=== PATIENT | female | born 1970 | race Caucasian/White ===

== ENCOUNTER 2017-05-30 14:11 | Emergency (ER) ==
[2017-05-30] MEDS ORDERED: ROCEPHIN IM STA (14:14)
[2017-05-30] MEDS ORDERED: LIDOCAINE HCL 1% SDV SUBCUT STA (14:14)
[2017-05-30 14:17] VITALS: BP 123/86; TEMP 97.9; BMI 38.2
--- NOTE | 2017-05-30 14:47 | DI ---
EXAM: Radiographs, right hand HISTORY: Right hand pain. COMPARISON: None available. TECHNIQUE: Three views. FINDINGS: Bone mineralization is normal. There is no fracture or dislocation. The joint spaces are maintained. No focal soft tissue abnormality is seen. IMPRESSION: No fracture or dislocation.
--- NOTE | 2017-05-30 14:47 | DI ---
EXAM: Three views of the left hand. History: Left hand pain. Comparison: Left hand radiograph 05/28/2016 Findings: No acute fracture or dislocation. No abnormal calcifications or radiopaque foreign bodies. Joint spaces are relatively preserved. Impression: No acute osseous abnormality
--- NOTE | 2017-05-30 14:48 | DI ---
EXAM: Three views of the left elbow. History: Left elbow pain. Comparison: Left elbow radiograph 08/11/2013 Findings: No acute fracture or dislocation. Well corticated ossific density again seen along the ul vivienne side of the elbow joint. No definite joint effusion. Impression: 1. No acute osseous abnormality. 2. No change in the well corticated ossific density along the ulnar side of the elbow joint could be intra-articular
--- NOTE | 2017-05-30 15:34 | ED.PDOC ---
General ED Provider: Dr. CAMERON ARMANDO Chief Complaint: Hand Pain/Injury Stated Complaint: hand pain Time Seen by Physician: 14:13 (seen with nursing staff) Mode of Arrival: Walk-In Information Source: Patient Exam Limitations: No limitations Primary Care Provider: CAMERON ROTHMAN Nursing and Triage Documentation Reviewed and Agree: Yes (seen with nursing staff at bedside ) Musculoskeletal Complaint Exam - Hand/Wrist Complaint/Exam Location of Pain: Reports: Right, Left, Hand. 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 [employer] Symptoms Are: Still present Initial Severity: Mild Current Severity: Mild Location: Reports: Discrete Character: Reports: Aching Alleviating: Reports: Rest Aggravating: Reports: None Associated Signs and Symptoms: Denies: Swelling, Redness, Bruising, Fever, Weakness, Numbness, Tingling Dominant Hand: Right Related Surgical History: Reports: None Differential Diagnoses: Carpal Tunnel Syndrome, Infection, Foreign Body, Sprain , Strain, Tendonitis, Tenosynovitis Review of Systems - Review Of Systems Constitutional: Reports: No symptoms Eyes: Reports: No symptoms Ears, Nose, Mouth, Throat: Reports: No symptoms Respiratory: Reports: No symptoms Cardiac: Reports: No symptoms GI: Reports: No symptoms : Reports: No symptoms Musculoskeletal: Reports: Joint pain (hands) Skin: Reports: No symptoms Neurological: Reports: No symptoms Endocrine: Reports: No symptoms Hematologic/Lymphatic: Reports: No symptoms All Other Systems: Reviewed and Negative Past Medical History - Past Medical History Previously Healthy: Yes Endocrine: Reports: None Cardiovascular: Reports: None Respiratory: Reports: None Hematological: Reports: None Gastrointestinal: Reports: None Genitourinary: Reports: None Neuro/Psych: Reports: None Musculoskeletal: Reports: None Cancer: Reports: None Last Menstrual Period: none - Surgical History General Surgical History: Reports: None - Family History Family History: Reports: None - Social History Smoking Status: Current every day smoker Hx Substance Use: No Alcohol Screening: None Physical Exam - Physical Exam Appearance: Well-appearing, No pain distress, Well-nourished Eyes: LAKSHMI, EOMI, Conjunctiva clear ENT: Ears normal, Nose normal, Oropharynx normal Respiratory: Airway patent, Breath sounds clear, Breath sounds equal, Respirations nonlabored Cardiovascular: RRR, Pulses normal, No rub, No murmur GI/: Soft, Nontender, No masses, Bowel sounds normal, No Organomegaly Musculoskeletal: Normal strength, ROM intact, No edema, No calf tenderness Skin: Warm, Dry, Normal color Neurological: Sensation intact, Motor intact, Reflexes intact, Cranial nerves intact, Alert, Oriented Psychiatric: Affect appropriate, Mood appropriate Critical Care Note - Critical Care Note Total Time (mins): 0 Course - Course Orders, Labs, Meds: Orders Category Date Time Status Ceftriaxone Sodium [Rocephin] MEDS 05/30/17 14:14 Discontinued 1 gm IM ONCE STA Lidocaine HCl/Pf [Lidocaine HCl 1% Sdv] MEDS 05/30/17 14:14 Discontinued 5 ml SUBCUT ONCE STA ELBOW, LEFT MIN 3 VIEWS Stat RADS 05/30/17 14:21 Completed HAND, LEFT 3 VIEWS Stat RADS 05/30/17 14:14 Completed HAND, RIGHT 3 VIEWS Stat RADS 05/30/17 14:14 Completed Medications Discontinued Medications Generic Name Dose Route Start Last Admin Trade Name Freq PRN Reason Stop Dose Admin Ceftriaxone Sodium 1 gm 05/30/17 14:14 05/30/17 14:42 Rocephin IM 05/30/17 14:15 1 gm ONCE STA Administration Lidocaine HCl 5 ml 05/30/17 14:14 05/30/17 14:43 Lidocaine Hcl 1% Sdv SUBCUT 05/30/17 14:15 5 ml ONCE STA Administration Vital Signs: Temp Pulse Resp BP Pulse Ox 05/30/17 14:11 97.9 F 82 20 123/86 96 Departure - Departure Time of Disposition: 15:35 Disposition: HOME SELF-CARE Discharge Problem: Hand pain Instructions: Arthralgia (ED), Complex Regional Pain Syndrome (GEN) Condition: Good Pt referred to PMD for follow-up: Yes Additional Instructions: Please call your Family Physician as soon as possible to schedule a follow-up appointment.IF YOUR HAND IS SWOLLEN , RED , RASH NOTED YOU MUST RETURN SSON POSSIBLE Prescriptions: Hydrocodone/Acetaminophen [[place] 10-325 Tablet] 1 each PO Q8HR #14 tablet Allergies/Adverse Reactions: Allergies ampicillin Adverse Reaction (Verified 05/30/17 14:18) aspirin Adverse Reaction (Verified 05/30/17 14:18) erythromycin base [Erythromycin Base] Adverse Reaction (Verified 05/30/17 14:18) morphine Adverse Reaction (Verified 05/30/17 14:18) Home Medications: Ambulatory Orders Lurasidone HCl [Latuda] 40 mg PO DAILY 09/07/14 Hydrocodone/Acetaminophen [[place] 10-325 Tablet] 1 each PO Q8HR #14 tablet Tizanidine HCl [Zanaflex] 4 mg PO DAILY 05/30/17
== END 2017-05-30 15:46 | disposition home or self-care (01) ==
LOC: ED 14:11
DX: M79.642 Pain in left hand (principal); M79.641 Pain in right hand; F17.210 Nicotine dependence, cigarettes, uncomplicated
CPT/HCPCS: 96372; 99282

== ENCOUNTER 2018-11-21 15:16 | Emergency (ER) ==
[2018-11-21 15:21] VITALS: BP 116/64; TEMP 97.9; BMI 37.9
--- NOTE | 2018-11-21 16:14 | CT ---
EXAM: CT lumbar spine without contrast HISTORY: Right flank pain COMPARISON: None TECHNIQUE: CT lumbar spine performed without intravenous contrast. Coronal and sagittal reformatted images obtained. FINDINGS: Vertebral bodies normal height. No fracture. Multilevel marginal osteophyte formation. Mild intervertebral disc space narrowing L2-L3. Multilevel facet arthrosis. 1 mm anterolisthesis of L4 on L5. Sacroiliac joints intact with mild degenerative change. T12-L1: No central canal or neural foraminal narrowing. L1-L2: No central canal or neural foraminal narrowing. L2-L3: Posterior disc osteophyte complex and facet arthrosis causing mild central canal narrowing. L3-L4: No central canal or neural foraminal narrowing. L4-L5: Posterior disc osteophyte complex and facet arthrosis causing mild central canal and mild kesha ateral neural foraminal narrowing. L5-S1: No central canal or neural foraminal narrowing. IMPRESSION: 1. No fracture or subluxation. 2. Chronic discogenic degenerative disease and facet arthrosis. Please see segmental analysis.
--- NOTE | 2018-11-21 16:19 | CT ---
EXAM: CT abdomen pelvis without contrast HISTORY: Right flank pain COMPARISON: None TECHNIQUE: CT abdomen pelvis performed without intravenous contrast. Coronal and sagittal reformatt ed images obtained FINDINGS: Granulomatous calcification right lung base. Granulomatous calcification lung bases. No free air. No acute abnormalities of the bones. Degenerative change in the spine. Heart normal in s ize. Liver is enlarged. Liver diffusely decreased in density. Gallbladder appears normal. Pancrea s appears normal. Spleen appears normal. Adrenals appear normal. Aorta normal in caliber. Patient status post hysterectomy. No lymphadenopathy or ascites. Small fat-containing periumbilical hernia . Stomach unremarkable. No dilated loops small bowel. Appendix appears normal. Colonic diverticul osis. No hydronephrosis or nephrolithiasis. No calculi visualized in the normal course of the urete rs. Bladder only mildly distended and poorly evaluated, grossly unremarkable IMPRESSION: 1. No hydronephrosis or nephrolithiasis. 2. Hepatomegaly. Hepatic steatosis. 3. Colonic diverticulosis.
--- NOTE | 2018-11-21 16:32 | ED.PDOC ---
General ED Provider: Dr. CAMERON ARMANDO Chief Complaint: Back Pain Stated Complaint: back pain lumbar Time Seen by Physician: 15:30 (seen with the nursing staff) Mode of Arrival: Walk-In Information Source: Patient Exam Limitations: No limitations Primary Care Provider: CAMERON ROTHMAN Nursing and Triage Documentation Reviewed and Agree: Yes Does patient meet sepsis criteria?: No System Inflammatory Response Syndrome: Not Applicable Sepsis Protocol: For patient's 13 years and over: Temp is 96.8 and below OR 101 and greater Pulse >90 BPM Resp >20/minute Acutely Altered Mental Status Are patient's symptoms suggestive of a new infection, such as: -Pneumonia -Skin, Soft Tissue -Endocarditis -UTI -Bone, Joint Infection -Implantable Device -Acute Abdominal Infection -Wound Infection -Meningitis -Blood Stream Catheter Infection -Unknown Musculoskeletal Complaint Exam - Back Pain Complaint/Exam Mechanism of Injury: Reports: No known trauma Onset/Duration: 2 days Symptoms Are: Still present Timing: Constant Episodes Lasting: Days Initial Severity: Mild Current Severity: Mild Location: Reports: Discrete Character: Reports: Aching Aggravating: Reports: Movements, Lifting, Bending, Walking Alleviating: Reports: Rest, Position Associated Signs and Symptoms: Denies: Swelling, Redness, Bruising, Fever, Weakness, Numbness, Tingling, Abdominal pain, Flank pain, Bladder incontinence, Bowel incontinence, Weight loss, Pain with weight bearing Related History: Reports: Similar episode TAD Risk Factors: Reports: None AAA Risk Factors: Reports: None Cauda Equina Risk Factors: Reports: None Epidural Abcess Risk Factors: Reports: None Related Surgical History: Reports: None Focal Tenderness: No Paraspinal Muscle Tenderness: No Paraspinal Muscle Spasm: No Scoliosis: No SLR Test: Right Negative, Left Negative Hip Motion Testing Pain: Right Negative, Left Negative Focal Weakness: Present: None Focal Sensory Loss: Present: None Gait: Present: Normal Differential Diagnoses: Fracture (uti), Strain, Sprain Review of Systems - Review Of Systems Constitutional: Reports: No symptoms Eyes: Reports: No symptoms Ears, Nose, Mouth, Throat: Reports: No symptoms Respiratory: Reports: No symptoms Cardiac: Reports: No symptoms GI: Reports: No symptoms : Reports: No symptoms Musculoskeletal: Reports: Back pain Skin: Reports: No symptoms Neurological: Reports: No symptoms Endocrine: Reports: No symptoms Hematologic/Lymphatic: Reports: No symptoms All Other Systems: Reviewed and Negative Past Medical History - Past Medical History Previously Healthy: Yes Endocrine: Reports: None Cardiovascular: Reports: None Respiratory: Reports: None Hematological: Reports: None Gastrointestinal: Reports: None Genitourinary: Reports: None Neuro/Psych: Reports: None Musculoskeletal: Reports: None Cancer: Reports: None Last Menstrual Period: HYSTERECTOMY - Surgical History General Surgical History: Reports: None - Family History Family History: Reports: None - Social History Smoking Status: Current every day smoker Hx Substance Use: No Alcohol Screening: None - Immunizations Tetanus Shot up to Date: No Physical Exam - Physical Exam Appearance: Well-appearing, No pain distress, Well-nourished Eyes: LAKSHMI, EOMI, Conjunctiva clear ENT: Ears normal, Nose normal, Oropharynx normal Respiratory: Airway patent, Breath sounds clear, Breath sounds equal, Respirations nonlabored Cardiovascular: RRR, Pulses normal, No rub, No murmur GI/: Soft, Nontender, No masses, Bowel sounds normal, No Organomegaly Musculoskeletal: Normal strength, ROM intact, No edema, No calf tenderness Skin: Warm, Dry, Normal color Neurological: Sensation intact, Motor intact, Reflexes intact, Cranial nerves intact, Alert, Oriented Psychiatric: Affect appropriate, Mood appropriate Interpretation - Radiology Interpretation Radiology Interpretation By: Radiologist Radiology Results: No acute changes Exam Interpreted: CT Scan Re-Evaluation - Re-Evaluation Time of Re-Evaluation: 16:00 Vital Signs Stable: Yes Appearance: NAD Lungs: Clear Skin: Warm and Dry Neuro: Alert and Oriented X3 CV: RRR Critical Care Note - Critical Care Note Total Time (mins): 0 Course - Course Hematology/Chemistry: 11/21/18 15:52 11/21/18 15:52 Orders, Labs, Meds: Lab Review 11/21/18 11/21/18 15:52 15:52 WBC 13.02 H RBC 4.66 Hgb 13.5 Hct 41.7 MCV 89.5 MCH 29.0 MCHC 32.4 RDW Coeff of David 14.9 H Plt Count 264 Immature Gran % (Auto) 0.3 Neut % (Auto) 68.8 Lymph % (Auto) 21.5 Wilkinson % (Auto) 5.6 Eos % (Auto) 3.1 Baso % (Auto) 0.7 Immature Gran # (Auto) 0.0 Neut # (Auto) 9.0 H Lymph # (Auto) 2.8 Wilkinson # (Auto) 0.7 Eos # (Auto) 0.4 Baso # (Auto) 0.1 Sodium 135.9 Potassium 4.07 Chloride 105.1 Carbon Dioxide 23.1 Anion Gap 11.77 BUN 11.5 Creatinine 0.66 Estimated GFR (MDRD) 96.00 BUN/Creatinine Ratio 17.42 Glucose 100.4 Calcium 9.26 Total Bilirubin 0.25 AST 17.6 ALT 17.9 Alkaline Phosphatase 75.7 Total Protein 6.80 Albumin 4.07 Globulin 2.73 Albumin/Globulin Ratio 1.49 Orders Category Date Time Status CBC W/ AUTO DIFF Stat LAB 11/21/18 15:52 Completed COMPREHENSIVE METABOLIC PANEL Stat LAB 11/21/18 15:52 Completed URINALYSIS C & S IF INDICATED Stat LAB 11/21/18 15:[address] ABD/PEL WO RENAL STONE PROT Stat RADS 11/21/18 15:[address] LUMBAR SPINE W/O CONTRAST Stat RADS 11/21/18 15:32 Completed Vital Signs: Temp Pulse Resp BP Pulse Ox 11/21/18 15:20 97.9 F 88 16 116/64 98 Departure - Departure Time of Disposition: 16:32 Disposition: HOME SELF-CARE Discharge Problem: Backache Low back pain Qualifiers: Chronicity: acute Back pain laterality: midline Sciatica presence: without sciatica Qualified Code(s): M54.5 - Low back pain Instructions: Back Pain (ED), Flank Pain (ED), Lower Back Exercises (ED) Condition: Good Pt referred to PMD for follow-up: Yes IPMP verified?: No Additional Instructions: Please call your Family Physician as soon as possible to schedule a follow-up appointment. Prescriptions: Hydrocodone Bit/Acetaminophen [[place] 10-325] 1 each PO Q6HR #6 tablet Allergies/Adverse Reactions: Allergies ampicillin Adverse Reaction (Verified 11/21/18 15:21) aspirin Adverse Reaction (Verified 11/21/18 15:21) erythromycin base [Erythromycin Base] Adverse Reaction (Verified 11/21/18 15:21) morphine Adverse Reaction (Verified 11/21/18 15:21) Home Medications: Ambulatory Orders Lurasidone HCl [Latuda] 40 mg PO DAILY 09/07/14 Hydrocodone/Acetaminophen [[place] 10-325 Tablet] 1 each PO Q8HR #14 tablet Tizanidine HCl [Zanaflex] 4 mg PO DAILY 05/30/17 Hydrocodone Bit/Acetaminophen [[place] 10325] 1 each PO Q6HR #6 tablet 11/21/18
== END 2018-11-21 16:44 | disposition home or self-care (01) ==
LOC: ED 15:16
DX: M54.5 Low back pain (principal); F17.210 Nicotine dependence, cigarettes, uncomplicated
CPT/HCPCS: 36415; 74176; 80053; 81001; 85025; 99283